=== PATIENT | male | born 1980 | race Caucasian/White ===

== ENCOUNTER 2022-04-07 16:40 | Emergency (ER) | payer OTHER, MEDICAID ==
[~2022-04-07] VITALS: Ht 170.2 cm; Wt 80.0 kg
[2022-04-07 16:44] VITALS: BP 140/93
[2022-04-07] MEDS ORDERED: OFLO5DRO4 RIGHT EAR (21:16)
[2022-04-07] MEDS ORDERED: CARB15DR63 RIGHT EAR (21:16)
[2022-04-07] MEDS ORDERED: AMOX1TAB16 PO (21:16)
[2022-04-07] MEDS ORDERED: CARB-274 RIGHT EAR (21:16)
== END 2022-04-07 21:52 | disposition home or self-care (01) ==
LOC: ER 16:40
DX: H61.21 Impacted cerumen, right ear (principal); H66.91 Otitis media, unspecified, right ear; H60.92 Unspecified otitis externa, left ear; E11.9 Type 2 diabetes mellitus without complications
CPT/HCPCS: 99283